=== PATIENT | male | born 1950 | race Two or more races ===

== ENCOUNTER 2022-08-14 14:35 | Inpatient (IN) | payer MEDICARE, MEDICAID ==
[~2022-08-14] VITALS: Ht 167.6 cm; Wt 102.1 kg
[2022-08-14] MEDS ORDERED: LIDOCAINE HCL 1% 20ML VIAL (Pyxis) INJ INFIL STA (20:42)
[2022-08-14] MEDS ORDERED: LIDOCAINE HCL 1% 20ML VIAL (Pyxis) INJ INFIL ONE (22:45)
[2022-08-14] MEDS ORDERED: LIDOCAINE HCL 1% 10 MG/ML 10ML VIAL IJ NR (23:00)
[2022-08-15] MEDS ORDERED: VANCOMYCIN 1G PREMIX 200 ML IV SCH (01:00)
[2022-08-15] MEDS ORDERED: KETOROLAC 15MG/ML VIAL IV ONE (01:00)
[2022-08-15] MEDS ORDERED: CEFTRIAXONE 2 G PREMIX 50 ML IV ONE (01:00)
[2022-08-15 04:24] LABS: BASOPHILS % 0.4 % (0.0-2.0); EOSINOPHILS % 0.4 % (0.0-5.0); HEMATOCRIT. 36.1 % (42.0-52.0); LYMPHOCYTES % 15.5 % (20.0-50.0); MEAN CORPUSCULAR HEMOGLOBIN 26.4 pg (28.0-32.0); MEAN CORPUSCULAR VOLUME 79.4 fL (80.0-94.0); MONOCYTES % 10.1 % (2.0-8.0); NEUTROPHILS % 73.6 % (40.0-76.0); RED BLOOD CELL COUNT 4.54 mill/uL (4.7-6.1)
[2022-08-15 05:49] LABS: CHLORIDE 102 mEq/L (98-107)
[2022-08-15 06:21] LABS: MEAN PLATELET VOLUME 8.8 fl (7.4-10.4); PLATELET 185 x1000/uL (130-400)
[2022-08-15] MEDS ORDERED: ONDANSETRON HCL 4MG/2ML INJ IV PRN (08:30)
[2022-08-15] MEDS ORDERED: ACETAMINOPHEN 650MG/20.3ML UDC GT PRN (08:30)
[2022-08-15] MEDS ORDERED: ACETAMINOPHEN 325MG TABLET PO PRN ×2 (08:30→23:00)
[2022-08-15] MEDS ORDERED: CLONIDINE 0.1MG TABLET PO PRN (08:30)
[2022-08-15] MEDS ORDERED: IPRATROPIUM/ALBUTEROL 0.5-3(2.5)MG/3ML NEB HHN PRN (08:30)
[2022-08-15] MEDS ORDERED: GUAIFENESIN 200MG/10ML SUGAR FREE UDC PO PRN (08:30)
[2022-08-15] MEDS ORDERED: DOCUSATE SODIUM 100MG CAPSULE PO PRN (08:30)
[2022-08-15 11:00] VITALS: BP 138/98
[2022-08-15 12:00] VITALS: BP 145/73
[2022-08-15 16:00] VITALS: BP 152/86
[2022-08-15] MEDS ORDERED: IBUPROFEN 400MG TABLET PO PRN (17:30)
[2022-08-15 20:00] VITALS: BP 126/80
[2022-08-15] MEDS: ENOXAPARIN 30MG/0.3ML SYR SUBCUT SCH (20:43)
[2022-08-16] VITALS: BP 123/64
[2022-08-16 04:00] VITALS: BP 110/71
[2022-08-16] MEDS: PANTOPRAZOLE 40MG DR TABLET PO SCH ×2 (04:50→11:05)
[2022-08-16 07:49] LABS: BASOPHILS % 0.5 % (0.0-2.0); PLATELET 179 x1000/uL (130-400)
[2022-08-16 07:59] LABS: EOSINOPHILS % 3.6 % (0.0-5.0); HEMOGLOBIN. 11.6 g/dL (14.0-18.0); LYMPHOCYTES % 21.8 % (20.0-50.0); MEAN CORPUSCULAR HEMOGLOBIN 26.3 pg (28.0-32.0); MEAN CORPUSCULAR VOLUME 79.5 fL (80.0-94.0); MEAN PLATELET VOLUME 8.3 fl (7.4-10.4); MONOCYTES % 13.2 % (2.0-8.0); NEUTROPHILS % 60.9 % (40.0-76.0); RED BLOOD CELL COUNT 4.41 mill/uL (4.7-6.1); RED CELL DISTRIBUTION WIDTH 17.8 % (11.6-14.6)
[2022-08-16 08:00] VITALS: BP 117/58
[2022-08-16] MEDS: ENOXAPARIN 30MG/0.3ML SYR SUBCUT SCH ×2 (11:04→22:18)
[2022-08-16 12:27] LABS: CHLORIDE 104 mEq/L (98-107)
[2022-08-16 12:49] LABS: HDL CHOLESTEROL 47 mg/dL (40-59); LDL CHOLESTEROL 114 mg/dL (5-100); T4 FREE 0.97 ng/dL (0.76-1.46); TOTAL IRON BINDING CAPACITY 210 ug/dL (250-450)
[2022-08-16] MEDS ORDERED: CELECOXIB 200MG CAPSULE PO SCH (21:00)
[2022-08-17] VITALS: BP 120/66
[2022-08-17 04:00] VITALS: BP 113/71
[2022-08-17 07:41] LABS: BASOPHILS % 0.1 % (0.0-2.0); EOSINOPHILS % 0.1 % (0.0-5.0); HEMATOCRIT. 37.8 % (42.0-52.0); HEMOGLOBIN. 12.6 g/dL (14.0-18.0); LYMPHOCYTES % 17.1 % (20.0-50.0); MEAN CORPUSCULAR HEMOGLOBIN 26.3 pg (28.0-32.0); MEAN CORPUSCULAR VOLUME 78.7 fL (80.0-94.0); MEAN PLATELET VOLUME 8.5 fl (7.4-10.4); MONOCYTES % 7.7 % (2.0-8.0); PLATELET 231 x1000/uL (130-400); RED CELL DISTRIBUTION WIDTH 17.7 % (11.6-14.6)
[2022-08-17 08:11] LABS: CHLORIDE 106 mEq/L (98-107)
[2022-08-17] MEDS: PANTOPRAZOLE 40MG DR TABLET PO SCH (08:25)
[2022-08-17] MEDS: ENOXAPARIN 30MG/0.3ML SYR SUBCUT SCH (08:27)
[2022-08-17] MEDS ORDERED: CELECOXIB 100MG CAPSULE PO SCH (08:28)
[2022-08-17 12:00] VITALS: BP 133/71
[2022-08-17] MEDS ORDERED: CELE200C PO (13:01)
[2022-08-17 13:31] VITALS: BP 133/71
[2022-08-17] MEDS ORDERED: CELECOXIB 200MG CAPSULE PO SCH (17:50)
[2022-08-21 09:06] LABS: ALDOLASE 8.2 U/L (3.3-10.3)
[2022-08-22 06:11] LABS: ANA IFA Negative (.)
== END 2022-08-17 17:05 | disposition home health service (06) | DRG 351 ==
LOC: ER 14:35 → MICUSO 08-15 00:26 → 6EST 08-15 10:23
PROVIDERS: ADMIT Internal Medicine; ATTEND Internal Medicine
PROC: 0S9D3ZZ Drainage of Left Knee Joint, Percutaneous Approach (ICD-10-PCS; principal; 2022-08-15)
PROC: 0SJB3ZZ Inspection of Left Hip Joint, Percutaneous Approach (ICD-10-PCS; 2022-08-15)
DX: M17.12 Unilateral primary osteoarthritis, left knee (principal); N17.0 Acute kidney failure with tubular necrosis; E46 Unspecified protein-calorie malnutrition; M00.9 Pyogenic arthritis, unspecified; D50.9 Iron deficiency anemia, unspecified; M10.9 Gout, unspecified; E78.5 Hyperlipidemia, unspecified; E66.01 Morbid (severe) obesity due to excess calories; G89.29 Other chronic pain; Z68.36 Body mass index [BMI] 36.0-36.9, adult
CPT/HCPCS: 36415; 73562; 80048; 80053; 80061; 82085; 82728; 83036; 83540; 83550; 83605; 84439; 84443; 84550; 85025; 85651; 86256; 86431; 89060; 93970; 97162; 99285; J0696; J1650; J1885; J3370; J3490

== ENCOUNTER 2024-10-04 16:57 | Emergency (ER) | payer MEDICARE, MEDICAID ==
[~2024-10-04] VITALS: Ht 175.3 cm; Wt 104.0 kg
[~2024-10-04 16:57] MED LIST: CEL200 PO
[2024-10-04 17:20] VITALS: BP 152/94; PULSE 91; RESP 16; TEMP 36.7; O2SAT 99
== END 2024-10-04 20:43 | disposition left against medical advice (07) ==
LOC: ER 17:13
DX: M79.643 Pain in unspecified hand (principal); Z53.21 Procedure and treatment not carried out due to patient leaving prior to being seen by health care provider
CPT/HCPCS: 73110

== ENCOUNTER 2025-07-05 14:27 | Emergency (ER) | payer MEDICARE, MEDICAID ==
[~2025-07-05] VITALS: Ht 175.3 cm; Wt 100.0 kg
[2025-07-05 15:16] VITALS: O2SAT 99
[2025-07-05] MEDS: ACETAMINOPHEN 500MG TABLET PO ONE (16:43)
[2025-07-05 17:35] LABS: BASOPHILS % 0.9 % (0.0-2.0); EOSINOPHILS % 1.6 % (0.0-5.0); HEMATOCRIT. 40.4 % (42.0-52.0); HEMOGLOBIN. 13.0 g/dL (14.0-18.0); LYMPHOCYTES % 26.1 % (20.0-50.0); MEAN PLATELET VOLUME 8.4 fl (7.4-10.4); MONOCYTES % 7.0 % (2.0-8.0); NEUTROPHILS % 64.4 % (40.0-76.0); PLATELET 147 x1000/uL (130-400); RED BLOOD CELL COUNT 4.92 mill/uL (4.7-6.1); RED CELL DISTRIBUTION WIDTH 17.3 % (11.6-14.6)
[2025-07-05 17:55] LABS: CREATININE 1.1 mg/dL (0.6-1.3)
[2025-07-05 17:56] LABS: UREA NITROGEN BLOOD 11 mg/dL (9-23)
[2025-07-05 17:57] LABS: ASPARTATE AMINOTRANSFERASE 19 IU/L (<34)
[2025-07-05 17:58] LABS: BILIRUBIN TOTAL 0.6 mg/dL (0.1-1.0); PROTEIN TOTAL 7.3 g/dL (6.0-8.3)
[2025-07-05] MEDS ORDERED: TOPUD MT (18:31)
[2025-07-05] MEDS ORDERED: DICL100G46 TP (18:31)
[2025-07-05 19:40] VITALS: BP 140/87; PULSE 63; RESP 16; TEMP 36.8; O2SAT 100
== END 2025-07-05 19:45 | disposition home or self-care (01) ==
LOC: ER 14:27
DX: M17.11 Unilateral primary osteoarthritis, right knee (principal); M25.461 Effusion, right knee; Z79.899 Other long term (current) drug therapy
CPT/HCPCS: 36415; 73560; 80053; 83735; 85025; 93971; 99284